=== PATIENT | male | born 1970 | race Hispanic/Latino ===

== ENCOUNTER → 2023-01-25 | Outpatient (CLI) | payer OTHER, BC | END | disposition home or self-care (01) | LOC: RAH 15:16 | PROVIDERS: ATTEND Nurse Practitioner Family | DX: N28.1 Cyst of kidney, acquired (principal); R10.9 Unspecified abdominal pain | CPT/HCPCS: 76770 ==

== ENCOUNTER → 2024-12-22 | Outpatient (CLI) | payer OTHER, BC ==
--- NOTE | 2024-12-27 09:49 | HMCIMG ---
EXAMINATION: NONCONTRAST MR EXAMINATION OF THE LEFT KNEE. CLINICAL HISTORY: Left knee pain. COMPARISON: None provided. TECHNIQUE: Multiplanar, multisequence MR imaging of the left knee. FINDINGS: In the medial compartment, there is complex tear of the meniscus involving the posterior horn and body, with a small displaced flap over the body segment extending into the medial gutter and moderate intrasubstance degeneration at the posterior horn root. There is no focal chondrosis or subchondral bone marrow edema. In the lateral compartment, the meniscus is intact. There is no focal chondrosis or subchondral bone marrow edema. In the patellofemoral compartment, there is no focal chondrosis or subchondral bone marrow edema. The anterior cruciate ligament exhibits mild mucoid degeneration without complete tear or discontinuity. The posterior cruciate ligament is intact. Iliotibial band, fibular collateral ligament, biceps femoris tendon, conjoined tendon, and popliteus tendon are intact. The medial collateral ligament is intact. The extensor mechanism and patellar retinaculum are intact. There is mild knee joint effusion. There is no bone marrow signal abnormality seen to suggest fracture, avascular necrosis, or osteomyelitis. The musculature surrounding the knee demonstrates normal bulk and signal. IMPRESSION: Complex tear of the medial meniscus involving the posterior horn and body with displaced flap and moderate intrasubstance degeneration at the posterior horn root. Mild mucoid degeneration of the anterior cruciate ligament without complete tear. /[place]
== END | disposition home or self-care (01) ==
LOC: RAH 13:49
PROVIDERS: ATTEND Nurse Practitioner Family
DX: S83.232A Complex tear of medial meniscus, current injury, left knee, initial encounter (principal); M17.12 Unilateral primary osteoarthritis, left knee; M25.462 Effusion, left knee; M25.562 Pain in left knee; X58.XXXA Exposure to other specified factors, initial encounter; Y93.89 Activity, other specified; Y92.89 Other specified places as the place of occurrence of the external cause; Y99.8 Other external cause status
CPT/HCPCS: 73721